=== PATIENT | male | born 1960 | race Caucasian/White ===

== ENCOUNTER 2024-01-08 18:38 | Emergency (ER) | payer OTHER ==
[2024-01-08] MEDS ORDERED: Ketorolac Tromethamine 30 MG (1 mL) VIAL ONE (19:01)
[2024-01-08 19:20] LABS: #Basophils 0.05 10x3/uL (0.0-0.2); %Basophils 0.6 % (0.0-1.0); %Eosinophils 1.6 % (0.0-10.0); %Lymphocytes 28.4 % (21.0-51.0); %Monocytes 8.8 % (0.0-10.0); %Neutrophils 60.2 % (42.0-75.0); Hematocrit 41.7 % (42.0-52.0); Hemoglobin 13.5 g/dL (14.0-18.0); Mean Corpuscular HGB CONC 32.4 g/dL (32.0-36.0); Mean Corpuscular Hemoglobin 29.8 pg (27.0-31.0); Mean Corpuscular Volume 92.1 fL (78.0-98.0); Mean Platelet Volume 9.6 fL (7.4-10.4); Platelet Count 202 10x3/uL (130-400); RBC Distribution Width 13.9 % (11.5-14.5); Red Blood Cell (RBC) Count 4.53 mill/uL (4.70-6.10)
[2024-01-08 19:36] LABS: Phosphorus 2.5 mg/dL (2.3-4.7)
[2024-01-08 19:37] LABS: ALT (SGPT) 15 U/L (8-55); AST (SGOT) 14 U/L (5-34); Albumin 3.4 g/dL (3.4-4.8); Alkaline Phosphatase 70 U/L (40-110); Anion Gap 12 mmol/L (10-20); BUN (Urea Nitrogen) 5 mg/dL (8.4-25.7); Bilirubin, Total 0.6 mg/dL (0.2-1.2); Calc. Creatinine Clearance 0 mL/min (70-130); Calcium 8.4 mg/dL (7.8-10.44); Carbon Dioxide 28 mmol/L (23-31); Chloride 104 mmol/L (98-107); Estimated GFR 86; Globulin 2.7 g/dL (2.4-3.5); Glucose 234 mg/dL (80-115); Magnesium 1.8 mg/dL (1.6-2.6); Potassium 3.5 mmol/L (3.5-5.1); Protein, Total 6.1 g/dL (5.8-8.1); Sodium 140 mmol/L (136-145)
[2024-01-08 19:39] LABS: Analyzer IN Cardio ER; Base Excess 1.5 mEq/L (-2.0 to +3.0); Calcium, Ionized (venous) 1.09 mmol/L (1.16-1.32); Chloride (VBG) 103 mmol/L (98-106); Hematocrit-VBG 42 % (42.0-52.0); Hemoglobin (Hb) 14.2 g/dL (13.1-17.2); Potassium (VBG) 3.42 mmol/L (3.70-5.30); Sodium 141 mmol/L (133-146); pH (venous) 7.386 (7.32-7.43)
[2024-01-08 19:42] LABS: Troponin I Less than 0.010 ng/mL (< 0.028)
== END 2024-01-08 21:57 | disposition home or self-care (01) ==
LOC: ERS 18:38
DX: E11.65 Type 2 diabetes mellitus with hyperglycemia (principal); F17.210 Nicotine dependence, cigarettes, uncomplicated; I25.10 Atherosclerotic heart disease of native coronary artery without angina pectoris; I10 Essential (primary) hypertension
CPT/HCPCS: 36415; 36416; 80053; 82010; 82805; 83735; 84100; 84484; 85025; 93005; 96374; J1885

== ENCOUNTER 2024-01-18 00:23 | Emergency (ER) | payer OTHER ==
[2024-01-19 00:38] LABS: #Basophils 0.05 10x3/uL (0.0-0.2); %Basophils 0.7 % (0.0-1.0); %Eosinophils 2.7 % (0.0-10.0); %Lymphocytes 33.3 % (21.0-51.0); %Monocytes 8.8 % (0.0-10.0); %Neutrophils 54.2 % (42.0-75.0); Hematocrit 41.2 % (42.0-52.0); Hemoglobin 13.7 g/dL (14.0-18.0); Mean Corpuscular HGB CONC 33.3 g/dL (32.0-36.0); Mean Corpuscular Hemoglobin 29.5 pg (27.0-31.0); Mean Corpuscular Volume 88.6 fL (78.0-98.0); Mean Platelet Volume 9.8 fL (7.4-10.4); Platelet Count 185 10x3/uL (130-400); RBC Distribution Width 13.8 % (11.5-14.5); Red Blood Cell (RBC) Count 4.65 mill/uL (4.70-6.10)
[2024-01-19 00:52] LABS: ALT (SGPT) 14 U/L (8-55); AST (SGOT) 18 U/L (5-34); Albumin 3.4 g/dL (3.4-4.8); Alkaline Phosphatase 72 U/L (40-110); Anion Gap 15 mmol/L (10-20); BUN (Urea Nitrogen) 8 mg/dL (8.4-25.7); Bilirubin, Total 0.7 mg/dL (0.2-1.2); Calc. Creatinine Clearance 0 mL/min (70-130); Calcium 8.9 mg/dL (7.8-10.44); Carbon Dioxide 26 mmol/L (23-31); Chloride 105 mmol/L (98-107); Estimated GFR 99; Glucose 131 mg/dL (80-115); Potassium 3.5 mmol/L (3.5-5.1); Protein, Total 6.4 g/dL (5.8-8.1); Sodium 142 mmol/L (136-145)
[2024-01-19 00:58] LABS: Troponin I Less than 0.010 ng/mL (< 0.028)
[2024-01-19 01:06] LABS: INR-International Normal Ratio 1.1; Prothrombin Time 14.4 sec (12.0-14.7)
[2024-01-19] MEDS ORDERED: Acetaminophen 500 MG TAB ONE (01:16)
[2024-01-19] MEDS ORDERED: Iopamidol-370 76% 500 ML MDV (1 ML CHARGE) ONE (10:15)
== END 2024-01-19 03:10 ==
LOC: ERS 00:23
DX: M54.2 Cervicalgia (principal); W01.0XXA Fall on same level from slipping, tripping and stumbling without subsequent striking against object, initial encounter
CPT/HCPCS: 36415; 70450; 71260; 72125; 74177; 80053; 84484; 85025; 85610; 85730; 86850; 86900; 86901; 93005; G0390; Q9967

== ENCOUNTER 2024-06-19 13:30 | Inpatient (IN) | payer OTHER ==
[2024-06-19 13:56] VITALS: BMI 34.4
[2024-06-19 15:57] LABS: #Basophils 0.05 10x3/uL (0.0-0.2); %Basophils 0.7 % (0.0-1.0); %Eosinophils 1.6 % (0.0-10.0); %Lymphocytes 25.7 % (21.0-51.0); %Monocytes 7.1 % (0.0-10.0); %Neutrophils 64.4 % (42.0-75.0); Hematocrit 39.1 % (42.0-52.0); Hemoglobin 12.8 g/dL (14.0-18.0); Mean Corpuscular HGB CONC 32.7 g/dL (32.0-36.0); Mean Corpuscular Hemoglobin 29.2 pg (27.0-31.0); Mean Corpuscular Volume 89.3 fL (78.0-98.0); Mean Platelet Volume 10.4 fL (7.4-10.4); Platelet Count 212 10x3/uL (130-400); RBC Distribution Width 14.6 % (11.5-14.5); Red Blood Cell (RBC) Count 4.38 mill/uL (4.70-6.10)
[2024-06-19 16:13] LABS: Anion Gap 14 mmol/L (10-20); BUN (Urea Nitrogen) 9 mg/dL (8.4-25.7); Calc. Creatinine Clearance 0 mL/min (70-130); Calcium 9.4 mg/dL (7.8-10.44); Carbon Dioxide 28 mmol/L (23-31); Chloride 100 mmol/L (98-107); Estimated GFR 98; Glucose 90 mg/dL (80-115); Potassium 3.9 mmol/L (3.5-5.1); Sodium 138 mmol/L (136-145)
[2024-06-20] MEDS ORDERED: Clindamycin/D5W 900 mg/50 ml Premix Bag ONE (11:19)
[2024-06-20] MEDS ORDERED: PROPOFOL 20 ML ONE (12:41)
[2024-06-20] MEDS ORDERED: Fentanyl 250 MCG/5 ML VIAL ONE (12:41)
[2024-06-20] MEDS ORDERED: Rocuronium Bromide 10 MG/ML (10ML VIAL) ONE ×2 (12:43→12:44)
[2024-06-20] MEDS ORDERED: Lidocaine 1% PF 5 ML VIAL ONE (12:43)
[2024-06-20] MEDS ORDERED: EPINEPHrine 1 MG/ML VIAL ONE (12:55)
[2024-06-20] MEDS ORDERED: Bupivacaine PF 0.5% 30 ML VIAL ONE (12:55)
[2024-06-20] MEDS ORDERED: Bupivacaine 0.25% HCL 30 ML VIAL ONE (13:11)
[2024-06-20] MEDS ORDERED: PHENYLEPHRINE-NS 100 MCG/ML 10 ML SYRINGE ONE (14:32)
[2024-06-20] MEDS ORDERED: Ondansetron PF 4 MG/2 ML Vial ONE (15:04)
[2024-06-20] MEDS ORDERED: SUGAMMADEX SODIUM 200 MG/2 ML VIAL ONE (15:57)
[2024-06-20] MEDS ORDERED: Promethazine HCl 25 MG/ML VIAL IM PRN (16:39)
[2024-06-20] MEDS ORDERED: Ipratropium/Albuterol 3 ML NEB NEB PRN (16:39)
[2024-06-20] MEDS ORDERED: Ondansetron PF 4 MG/2 ML Vial IVP PRN (16:39)
[2024-06-20] MEDS ORDERED: HYDROcodone/Acetaminophen 5/325 mg Tablet PO PRN (16:39)
[2024-06-20] MEDS ORDERED: Morphine 4 MG/ML VIAL SLOW IVP PRN (16:39)
[2024-06-20] MEDS: Acetaminophen 325 MG TAB PO SCH (18:19)
[2024-06-20] MEDS: Ketorolac Tromethamine 30 MG (1 mL) VIAL IVP SCH (18:19)
[2024-06-20 19:49] LABS: #Basophils Less than 0.03 10x3/uL (0.0-0.2); #Eosinophils Less than 0.03 10x3/uL (0.0-0.7); %Basophils 0.2 % (0.0-1.0); %Eosinophils 0.1 % (0.0-10.0); %Lymphocytes 7.5 % (21.0-51.0); %Monocytes 6.5 % (0.0-10.0); %Neutrophils 85.5 % (42.0-75.0); Hematocrit 38.1 % (42.0-52.0); Hemoglobin 12.7 g/dL (14.0-18.0); Mean Corpuscular HGB CONC 33.3 g/dL (32.0-36.0); Mean Corpuscular Hemoglobin 29.5 pg (27.0-31.0); Mean Corpuscular Volume 88.6 fL (78.0-98.0); Mean Platelet Volume 9.6 fL (7.4-10.4); Platelet Count 198 10x3/uL (130-400); RBC Distribution Width 14.8 % (11.5-14.5)
[2024-06-20 20:19] LABS: Anion Gap 12 mmol/L (10-20); BUN (Urea Nitrogen) 9 mg/dL (8.4-25.7); Calc. Creatinine Clearance 137 mL/min (70-130); Calcium 8.4 mg/dL (7.8-10.44); Carbon Dioxide 30 mmol/L (23-31); Chloride 102 mmol/L (98-107); Estimated GFR 100; Glucose 111 mg/dL (80-115); Potassium 3.9 mmol/L (3.5-5.1); Sodium 140 mmol/L (136-145)
[2024-06-20] MEDS: Transdermal Patch Removal TOP SCH (21:00)
[2024-06-20] MEDS: Melatonin 3 MG TAB PO SCH (21:33)
[2024-06-20] MEDS: Prazosin HCl 1 MG CAP PO SCH (21:33)
[2024-06-20] MEDS: Cyclobenzaprine 10 MG TAB PO SCH (21:33)
[2024-06-20] MEDS: Gabapentin 300 MG CAP PO SCH (21:33)
[2024-06-20] MEDS: Metoprolol Tartrate 50 MG TAB PO SCH (21:33)
[2024-06-20] MEDS: Divalproex Sodium 250 MG DR.TAB PO SCH (21:34)
[2024-06-20] MEDS: traZODone HCl 50 MG TAB PO SCH (21:34)
[2024-06-20] MEDS: HYDROcodone/Acetaminophen 5/325 mg Tablet PO PRN (21:34)
[2024-06-20] MEDS: Clindamycin/D5W 900 MG in Premix 1 BAG IVPB SCH (21:34)
[2024-06-20] MEDS: Heparin 5,000 UNITS/ML VIAL SC SCH (21:41)
[2024-06-21] MEDS: Mometasone 200 MCG/Formoterol 5 MCG 120 PUFF INHALER INH SCH (06:53)
[2024-06-21] MEDS: Levothyroxine Sodium 125 MCG TAB PO SCH (06:55)
[2024-06-21] MEDS: Glimepiride 2 MG TAB PO SCH (07:55)
[2024-06-21] MEDS: Atorvastatin Calcium 40 MG TAB PO SCH (07:56)
[2024-06-21] MEDS: Escitalopram Oxalate 20 mg Tablet PO SCH (07:58)
[2024-06-21] MEDS: Pantoprazole 40 MG DR.TAB PO SCH (07:59)
[2024-06-21] MEDS: Lidocaine 4% Patch TD SCH (07:59)
[2024-06-21 10:42] VITALS: BMI 34.4
[2024-06-21] MEDS: Buprenorphine 8mg/Naloxone 2mg per 1 FILM SL SCH (12:15)
[2024-06-21] MEDS: Furosemide 40 MG TAB PO SCH (14:43)
[2024-06-21] MEDS: Metoprolol Tartrate 25 MG TAB PO SCH (14:44)
[2024-06-21] MEDS: Acetaminophen 325 MG TAB PO SCH (15:16)
[2024-06-22] MEDS: hydrALAZINE 20 MG/ML VIAL SLOW IVP PRN (15:15)
[2024-06-22 16:58] VITALS: BP 178/95; TEMP 98.5
== END 2024-06-22 16:45 | DRG 164 ==
LOC: SURG A 06-20 10:42 → EDSTATUS 06-20 13:30 → PCU 06-20 18:21
PROVIDERS: ADMIT Student in an Organized Health Care Education/Training Program; ATTEND Student in an Organized Health Care Education/Training Program
PROC: 0BTC4ZZ Resection of Right Upper Lung Lobe, Percutaneous Endoscopic Approach (ICD-10-PCS; principal; 2024-06-20)
PROC: 07B74ZX Excision of Thorax Lymphatic, Percutaneous Endoscopic Approach, Diagnostic (ICD-10-PCS; 2024-06-20)
PROC: 8E0W4CZ Robotic Assisted Procedure of Trunk Region, Percutaneous Endoscopic Approach (ICD-10-PCS; 2024-06-20)
PROC: 3E033XZ Introduction of Vasopressor into Peripheral Vein, Percutaneous Approach (ICD-10-PCS; 2024-06-20)
PROC: 0W9930Z Drainage of Right Pleural Cavity with Drainage Device, Percutaneous Approach (ICD-10-PCS; 2024-06-20)
DX: C34.11 Malignant neoplasm of upper lobe, right bronchus or lung (principal); J93.9 Pneumothorax, unspecified; F17.210 Nicotine dependence, cigarettes, uncomplicated; I50.9 Heart failure, unspecified; J44.9 Chronic obstructive pulmonary disease, unspecified; Z86.73 Personal history of transient ischemic attack (TIA), and cerebral infarction without residual deficits
CPT/HCPCS: 36415; 71045; 71046; 80048; 81235; 85025; 86850; 86900; 86901; 88305; 88307; 88331; 88332; 88341; 88342; 88360; 93005; 93010; A4314; C1776; J0171; J0360; J0665; J1642; J1644; J1885; J2405; J2704; J3010; J3490; S2900